=== PATIENT | female | born 1995 | race Caucasian/White ===

== ENCOUNTER 2017-09-01 02:13 | Emergency (ER) | payer OTHER ==
[2017-09-01 02:57] VITALS: BP 147/95; PULSE 89; TEMP 98.1; BMI 26.4
[2017-09-01 04:06] LABS: BASO % 0.7 % (0-2.0); EOS % 0.8 % (0-4.5); HEMATOCRIT 33.1 % (32.4-45.2); HEMOGLOBIN 11.1 GM/dL (10.7-15.3); LYMPH % 26.1 % (8-40); MCH 32.5 pg (25.7-33.7); MCHC 33.5 g/dl (32.0-36.0); MEAN PLT VOLUME 9.9 fl (7.5-11.1); MONO % 13.3 % (3.8-10.2); NEUT % 59.1 % (42.8-82.8); PLATELET COUNT 143 K/MM3 (134-434); RBC 3.41 M/mm3 (3.60-5.2); RDW 14.6 % (11.6-15.6)
--- NOTE | 2017-09-01 04:29 | PDOC ---
Attending Attestation - HPI HPI: 09/01/17 04:32 The patient is a 22 year old female with a past medical history of anemia, lupus , ESRD on dialysis (MWF, not producing urine), who presents to the emergency department with heavy menstruation since yesterday. She states her last period was 08/09/17 lasting one day with restart yesterday. She states there are clots passing vaginally. She states this is unlike her other periods. She states there was some mild cramping earlier today, but denies pain now. She states she is sexually active with one partner The patient denies chest pain, shortness of breath, headache and dizziness. The patient denies fever, chills, nausea, vomit, diarrhea and constipation. Allergies: NKDA - Medical Decision Making 09/01/17 04:32 Documentation prepared by Mildred Eugene, acting as pediatrician/medical doctor for Tip Melgoza DO. <Mildred Eugene - Last Filed: 09/01/17 04:32> - Resident Resident Name: Low Lawson - ED Attending Attestation I have performed the following: I have examined & evaluated the patient, The case was reviewed & discussed with the resident, I agree w/resident's findings & plan, Exceptions are as noted - Physicial Exam PE: 09/01/17 19:18 *Physical Exam General Appearance: Yes: Appropriately Dressed. No: Apparent Distress, Intoxicated HEENT: positive: EOMI, NIKKI, Normal ENT Inspection, Normal Voice, TMs Normal, Pharynx Normal. negative: Pale Conjunctivae, Photophobia, Scleral Icterus (R), Scleral Icterus (L) Neck: positive: Trachea midline, Normal Thyroid, Supple. negative: Tender, Rigid, Carotid bruit, Stridor, Lymphadenopathy (R), Lymphadenopathy (L), Thyromegaly Respiratory/Chest: positive: Lungs Clear, Normal Breath Sounds. negative: Chest Tender, Respiratory Distress, Accessory Muscle Use, Labored Respiration, RES, Crackles, Rales, Rhonchi, Stridor, Wheezing, Dullness Cardiovascular: positive: Regular Rhythm, Regular Rate, S1, S2. negative: Edema , JVD, Murmur, Bradycardia, Tachycardia Vascular Pulses: Dorsalis-Pedis (R): 2+, Doralis-Pedis (L): 2+ Gastrointestinal/Abdominal: positive: Normal Bowel Sounds, Flat, Soft. negative : Tender, Organomegaly, Pulsatile Mass, Increased Bowel Sounds, Decreased BS, Distended, Guarding, Rebound, Hernia, Hepatomegaly, Spleenomegaly Lymphatic: negative: Adenopathy, Tenderness Musculoskeletal: positive: Normal Inspection. negative: CVA Tenderness, Decreased Range of Motion Extremity: positive: Normal Capillary Refill, Normal Inspection, Normal Range of Motion, Pelvis Stable. negative: Tender, Pedal Edema, Swelling, Erythema Integumentary: positive: Normal Color, Dry, Warm. negative: Cyanotic, Erythema , Jaundice, Rash Neurologic: positive: parachute packer II-XII NML intact, Fully Oriented, Alert, Normal Mood/ Affect, Motor Strength 5/5. negative: EOM Palsy, Facial Droop, Sensory Deficit <Tip Melgoza - Last Filed: 09/01/17 19:18>
[2017-09-01 04:52] LABS: ALBUMIN 3.8 g/dl (3.4-5.0); ANION GAP 12 (8-16); BLOOD UREA NITROGEN 49 mg/dL (7-18); CALCIUM 7.8 mg/dL (8.5-10.1); CHLORIDE 97 mmol/L (98-107); CO2 27 mmol/L (21-32); GLUCOSE,RANDOM 93 mg/dL (74-106); POTASSIUM 4.3 mmol/L (3.5-5.1); SGOT/AST 48 U/L (15-37); SGPT/ALT 84 U/L (12-78); SODIUM 136 mmol/L (136-145)
[2017-09-01 05:00] LABS: ALK PHOS 156 U/L (45-117); BILIRUBIN,TOTAL 0.4 mg/dL (0.2-1.0); CREATININE 7.2 mg/dL (0.55-1.02); TOT PROT 7.2 g/dl (6.4-8.2)
--- NOTE | 2017-09-01 05:15 | PDOC ---
History of Present Illness - General Chief Complaint: Vaginal Bleeding Stated Complaint: VAGINAL BLEEDING Time Seen by Provider: 09/01/17 03:27 History Source: Patient Exam Limitations: No Limitations - History of Present Illness Initial Comments: 09/01/17 05:00 22F with pmh of ESRD on hemodialysis (m/w/f) secondary to lupus presenting with heavy menstruation all days since yesterday. LAst period was August 09,lasted only one day, usually irregular. Has unprotected sex with her partner, no contraceptive used. 09/01/17 05:18 09/01/17 05:25 Past History - Past Medical History Allergies/Adverse Reactions: Allergies Allergy/AdvReac Type Severity Reaction Status Date / Time No Known Allergies Allergy Verified 09/01/17 02:55 Home Medications: Ambulatory Orders Sevelamer Carbonate [Renvela -] 800 mg PO DAILY 06/17/13 Methylprednisolone 4 mg PO DAILY 05/07/14 Oxycodone HCl/Acetaminophen [Percocet 5-325 mg Tablet -] 1 tab PO Q6H #12 tablet 05/07/14 Calcitriol [Rocaltrol -] 0.5 mcg PO DAILY 09/04/15 Calcium Carbonate - 600 mg PO DAILY 09/04/15 Mycophenolate Mofetil [Cellcept -] 1,500 mg PO DAILY 09/04/15 Anemia: Yes Dialysis: Yes (M W F) Kidney Stones: Yes - Reproductive History Cervical CA: No Dysfunctional Uterine Bleeding: No Ectopic : No Endometrial CA: No Polycystic Ovaries: No Therapeutic (s) & number: No Tubal Ligation: No - Immunization History Immunization Up to Date: Yes - Suicide/Smoking/Psychosocial Hx Smoking History: Never smoked Have you smoked in the past 12 months: No Information on smoking cessation initiated: No Hx Alcohol Use: No Drug/Substance Use Hx: No Substance Use Type: None Hx Substance Use Treatment: No *Physical Exam - Vital Signs Last Vital Signs Temp Pulse Resp BP Pulse Ox 98.1 F 89 14 147/95 100 09/01/17 02:55 09/01/17 02:55 09/01/17 02:55 09/01/17 02:55 09/01/17 02:55 ED Treatment Course - LABORATORY CBC & Chemistry Diagram: 09/01/17 04:00 09/01/17 04:00 - ADDITIONAL ORDERS Additional order review: Laboratory Results 09/01/17 04:00 Beta HCG, Quant < 1.0 09/01/17 04:00 RBC 3.41 L MCV 97.0 H MCHC 33.5 RDW 14.6 MPV 9.9 D Neutrophils % 59.1 Lymphocytes % 26.1 Monocytes % 13.3 H Eosinophils % 0.8 Basophils % 0.7 Medical Decision Making - Medical Decision Making 09/01/17 05:26 All labs negative *DC/Admit/Observation/Transfer Diagnosis at time of Disposition: Excessive menstruation - Discharge Dispostion Disposition: HOME Admit: No - Referrals - Patient Instructions Printed Discharge Instructions: Heavy Menstrual Bleeding Additional Instructions: Follow up with your OBGYN tomorrow Come back to the ER for any new, worsening or concerning symptoms - Post Discharge Activity
== END 2017-09-01 05:33 | disposition home or self-care (01) ==
LOC: JER 02:13
DX: N92.0 Excessive and frequent menstruation with regular cycle (principal); N18.6 End stage renal disease; Z99.2 Dependence on renal dialysis; M32.14 Glomerular disease in systemic lupus erythematosus
CPT/HCPCS: 36415; 80053; 84702; 85025; 87389; 99281-25